=== PATIENT | female | born 1970 | race Caucasian/White ===

== ENCOUNTER 2021-10-23 09:09 | Day surgery (SDC) | payer BC ==
[2021-10-18 10:58] VITALS: BMI 25.1
[2021-10-23] MEDS ORDERED: Bupivacaine PF 0.5% 30 ML VIAL ONE (09:53)
[2021-10-23] MEDS ORDERED: Neomycin-Polymyxin 1 ML AMP ONE (09:53)
[2021-10-23] MEDS ORDERED: Midazolam HCl 2 mg/2 ml Vial ONE ×2 (10:07→11:59)
[2021-10-23] MEDS ORDERED: Ondansetron PF 4 MG/2 ML Vial ONE (10:07)
[2021-10-23] MEDS ORDERED: Dexamethasone 20 MG/5 ML VIAL ONE (10:07)
[2021-10-23] MEDS ORDERED: PROPOFOL 20 ML ONE (10:07)
[2021-10-23] MEDS ORDERED: Fentanyl 100 MCG/2 ML VIAL ONE (10:07)
[2021-10-23] MEDS ORDERED: Lidocaine 1% PF 5 ML VIAL ONE (10:07)
[2021-10-23 10:08] LABS: Hemoglobin 14.5 g/dL (12.0-15.5); Mean Corpuscular HGB CONC 34.5 g/dL (32.0-36.0); Mean Corpuscular Hemoglobin 33.3 pg (27.0-33.0); Mean Corpuscular Volume 96.3 fl (81.6-98.3); Mean Platelet Volume 10.3 fl (7.4-10.4); Platelet Count 273 10x3/uL (150-450); RBC Distribution Width 12.5 % (11.5-14.5); Red Blood Cell (RBC) Count 4.36 10x6/uL (3.90-5.03); White Blood Cell (WBC) Count 8.7 10x3/uL (3.5-10.5)
[2021-10-23] MEDS ORDERED: Lidocaine 1% MPF 2 ML VIAL ONE (10:11)
[2021-10-23 10:19] LABS: BHCG - Serum Negative (NEGATIVE); Pregs Control Background? CLEAR/WHITE (CLR/WHITE); Pregs Control Bar Appear? YES (CONTROL BAR)
[2021-10-23 10:22] LABS: Anion Gap 13 mmol/L (10-20); BUN (Urea Nitrogen) 14 mg/dL (9.8-20.1); Calc. Creatinine Clearance 70 mL/min (70-130); Calcium 9.4 mg/dL (7.8-10.44); Carbon Dioxide 25 mmol/L (22-29); Chloride 106 mmol/L (98-107); Glucose 113 mg/dL (70-105); Sodium 140 mmol/L (136-145)
[2021-10-23] MEDS ORDERED: ceFAZolin 2 GM/Dextrose 50 ML IVPB ONE (11:54)
[2021-10-23] MEDS ORDERED: Ketorolac Tromethamine 30 MG/ML VIAL ONE (12:14)
[2021-10-23] MEDS ORDERED: Glycopyrrolate 0.2 MG/ML 5 ML SYRINGE ONE (12:25)
[2021-10-23] MEDS ORDERED: Meperidine HCl/PF 25 MG/ML VIAL ONE (13:40)
== END 2021-10-23 14:45 | disposition home or self-care (01) ==
LOC: CSHSDC 09:09
PROVIDERS: ATTEND Podiatrist Foot & Ankle Surgery
DX: M20.12 Hallux valgus (acquired), left foot (principal)
CPT/HCPCS: 36415; 80048; 84703; 85027; C1713; C1769; C1776; J0690; J1100; J1885; J2175; J2250; J2405; J2704; J3010; S0020